=== PATIENT | male | born 1970 | race Caucasian/White ===

== ENCOUNTER 2023-02-17 11:48 | Day surgery (SDC) | payer OTHER ==
[~2023-02-17 11:48] MED LIST: CARVEDILOL3.125 MG PO; CONSTULOSE10 GM/15 M PO; FOLI1 PO; FUROSEMIDE20 MG PO; MULTI-VITAMIN1 EAC2 PO; PANTOPRAZOLE SO40 M2 PO; PROBIOTIC1 EA13 PO; RIFA550T2 PO; SPIRONOLACTONE50 MG PO; Vitamin B-12100 MCG PO
== END 2023-02-17 22:55 | disposition home or self-care (01) ==
LOC: US 11:48
DX: R18.8 Other ascites (principal)
CPT/HCPCS: 76705; P9047

== ENCOUNTER 2023-02-25 10:45 | Day surgery (SDC) | payer OTHER | END 2023-02-25 22:52 | disposition home or self-care (01) | LOC: US 10:45 | DX: K74.69 Other cirrhosis of liver (principal); R18.8 Other ascites; F10.19 Alcohol abuse with unspecified alcohol-induced disorder; I10 Essential (primary) hypertension; Z79.899 Other long term (current) drug therapy | CPT/HCPCS: 49083; P9047 ==